=== PATIENT | female | born 1965 | race Caucasian/White ===

== ENCOUNTER 2021-07-29 09:37 | Emergency (ER) | payer SELFPAY ==
[~2021-07-29] VITALS: Ht 175.3 cm; Wt 81.8 kg
[~2021-07-29 09:37] MED LIST: FLEXERIL 1010 MG/TAB PO
[2021-07-29 09:41] VITALS: TEMP 97.8
[2021-07-29 11:34] VITALS: BP 127/87; PULSE 87
== END 2021-07-29 11:35 | disposition home or self-care (01) ==
LOC: SDCO 09:37 → COL.ER 09:37 → EDSTATUS 10:24 → COL.ER 11:35 → EDSTATUS 11:38
DX: S52.501A Unspecified fracture of the lower end of right radius, initial encounter for closed fracture (principal); F17.210 Nicotine dependence, cigarettes, uncomplicated; W01.0XXA Fall on same level from slipping, tripping and stumbling without subsequent striking against object, initial encounter; Y93.89 Activity, other specified
CPT/HCPCS: J2704; J3010